=== PATIENT | female | born 1960 | race American Indian/Alaskan Native ===

== ENCOUNTER 2018-03-08 21:22 | Emergency (ER) | payer MEDICARE ==
[2018-03-08 23:32] LABS: BUN/Creatinine Ratio 20; Blood Urea Nitrogen 20 mg/dL (7-17); Calcium 8.9 mg/dL (8.4-10.2); Hemolysis Index 2
--- NOTE | 2018-03-08 23:37 | Cat Scan Report ---
FINAL REPORT PROCEDURE: CT ABDOMEN PELVIS WO CON TECHNIQUE: Computerized axial tomography of the abdomen and pelvis was performed without intravenous contrast. This study is performed without intravascular contrast material and its sensitivity for abdominal and pelvic pathology, including neoplasms, inflammation, abscess, free fluid, thrombosis, arterial dissection and infarction, is reduced compared with a contrast enhanced study. HISTORY: b/l nephrostomy tubes possible leakage COMPARISON: No prior studies are available for comparison. FINDINGS: Visualized lower thorax: No significant abnormality. Liver: Normal size and attenuation. Spleen: Normal size and attenuation. Gallbladder and biliary system: There are gallstones. There is no specific evidence of cholecystitis. There is no biliary ductal dilatation.. Pancreas: Normal. Adrenals: Normal. Kidneys: There are bilateral percutaneous nephrostomy tubes. The right tube appears to be malposition in the midpole renal parenchyma rather than the collecting system. However, there is no hydronephrosis. The left tube is in the left renal pelvis. There are bilateral kidney stones. There is mild left hydronephrosis and hydroureter. GI tract: There is no bowel obstruction. There has been bowel surgery. There is no colitis or enteritis. The appendix is not identified.. Lymph nodes and mesentery: Normal. Vasculature: There is calcified atherosclerosis. There is no aneurysm.. Bladder: There is diffuse thickening of the urinary bladder wall. No discrete mass is seen.. Reproductive organs: There has been hysterectomy.. Peritoneum: There is no ascites, free air, abscess or adenopathy.. Musculoskeletal structures: No significant abnormality. Other: None. IMPRESSION: There are gallstones. There is no specific evidence of cholecystitis. There is no biliary ductal dilatation.. There are bilateral percutaneous nephrostomy tubes. The right tube appears to be malposition in the midpole renal parenchyma rather than the collecting system. However, there is no hydronephrosis. The left tube is in the left renal pelvis. There are bilateral kidney stones. There is mild left hydronephrosis and hydroureter. There is diffuse thickening of the urinary bladder wall. No discrete mass is seen.. There is no bowel obstruction. There has been bowel surgery. There is no colitis or enteritis. The appendix is not identified.. There has been hysterectomy.. There is no ascites, free air, abscess or adenopathy.. .
[2018-03-09 00:21] LABS: Basophils % (Auto) 0.4 % (0.0-1.8); Eosinophils # (Auto) 0.1 K/mm3 (0.0-0.4); Eosinophils % (Auto) 1.2 % (0.0-4.3); Hematocrit 28.6 % (30.3-42.9); Hemoglobin 8.9 gm/dl (10.1-14.3); Lymphocytes # (Auto) 1.1 K/mm3 (1.2-5.4); Lymphocytes % (Auto) 13.6 % (13.4-35.0); Mean Corpuscular HGB Conc 31 % (30-34); Mean Corpuscular Volume 75 fl (79-97); Monocytes # (Auto) 0.7 K/mm3 (0.0-0.8); Monocytes % (Auto) 8.4 % (0.0-7.3); Platelet Count 276 K/mm3 (140-440); Red Cell Distribution Width 18.1 % (13.2-15.2)
[2018-03-09 00:27] LABS: Mean Corpuscular Hemoglobin 24 pg (28-32)
--- NOTE | 2018-03-09 03:35 | Emergency Department Report ---
ED Female HPI - General Chief complaint: Abdominal Pain Stated complaint: NEPHROSTOMY TUBE LEAKING, ABD PAIN Time Seen by Provider: 03/09/18 03:04 Source: patient Mode of arrival: Ambulatory Limitations: No Limitations - History of Present Illness Initial comments: 57 yo female with past medical history of cancer to the cervix, colon, bladder, CABG, bilateral nephrostomy tubes, colon resection and hysterectomy presents to hospital complaining of leaking from her right nephrostomy tube noticed today. Patient complains of feeling feverish at home but no documented fever patient denies nausea, vomiting, diaphoresis. She only urinates once a day. Positive urine output from each nephrostomy tube. - Related Data Allergies Allergy/AdvReac Type Severity Reaction Status Date / Time aminophylline Allergy Itching Verified 03/08/18 22:19 erythromycin base Allergy Itching Verified 03/08/18 22:17 gentamicin Allergy Hives Verified 03/08/18 22:18 Penicillins Allergy Itching Verified 03/08/18 22:17 tramadol Allergy Itching Verified 03/08/18 22:19 ED Review of Systems ROS: Stated complaint: NEPHROSTOMY TUBE LEAKING, ABD PAIN Other details as noted in HPI Comment: All other systems reviewed and negative ED Past Medical Hx - Past Medical History Previous Medical History?: Yes Hx Heart Attack/AMI: Yes (Open heart surgery, Defibrillator) Hx Diabetes: Yes Hx Renal Disease: Yes (Acute Kidney Failure has bilateral nephrostomy tubes) Hx of Cancer: Yes (cervical, colon, bladder) Additional medical history: TURP 2017 Colon resection, Bilateral nephrostomy tubes, Defibrillator - Surgical History Past Surgical History?: Yes Hx Open Heart Surgery: Yes Hx Internal Defibrillator: Yes Additional Surgical History: TURP, Colon Resection, Bilateral Nephrostomy Tubes , Hysterectomy after Cervical cancer 2010 - Social History Smoking Status: Never Smoker Substance Use Type: None ED Physical Exam - General Limitations: No Limitations - Other Other exam information: General: No limitations, patient is alert in no acute distress Head exam: Atraumatic, normocephalic Eyes exam: Normal appearance ENT: Moist mucous membrane, normal oropharynx Neck exam: Normal inspection, full range of motion, no meningismus nontender Respiratory exam: Clear to auscultation bilateral, no wheezes, rales, crackles Cardiovascular: Normal rate and rhythm, normal heart sounds Abdomen: Soft, nondistended, and nontender, with normal bowel sounds, no rebound, or guarding Extremity: Full range of motion normal inspection no deformity Back: Normal Inspection, full range of motion, no tenderness. Bilateral nephrostomy tubes with mild leaking on gauze at the right nephrostomy site. Bilateral output and both nephrostomy bags. Neurologic: Alert, oriented x3, cranial nerves intact, no motor or sensory deficit Psychiatric: normal affect, normal mood Skin: Warm, dry, intact ED Course Vital Signs 03/08/18 03/08/18 03/09/18 21:56 22:33 02:48 Temperature 99.1 F 99.1 F 98.3 F Pulse Rate 81 83 80 Respiratory 16 20 16 Rate Blood Pressure 128/49 128/49 Blood Pressure 112/40 [Left] O2 Sat by Pulse 100 100 99 Oximetry - Consultations Consultation #1: 03/09/18 04:03 case d/w Dr Granger, since no fever here, wbc count normal and right nephrostomy tube is draining, rec outpatient follow up. contact office on Saturday to schedule outpatient follow up and tube exchange. Antibiotics are not recommended since the lack of fever and FVC Here in the ED ED Medical Decision Making - Lab Data Result diagrams: 03/08/18 22:57 03/08/18 22:57 Lab Results 03/08/18 03/08/18 Range/Units 22:57 22:57 WBC 8.3 (4.5-11.0) K/mm3 RBC 3.80 (3.65-5.03) M/mm3 Hgb 8.9 L (10.1-14.3) gm/dl Hct 28.6 L (30.3-42.9) % MCV 75 L (79-97) fl MCH 24 L (28-32) pg MCHC 31 (30-34) % RDW 18.1 H (13.2-15.2) % Plt Count 276 (140-440) K/mm3 Lymph % (Auto) 13.6 (13.4-35.0) % [place] % (Auto) 8.4 H (0.0-7.3) % Eos % (Auto) 1.2 (0.0-4.3) % Baso % (Auto) 0.4 (0.0-1.8) % Lymph # 1.1 L (1.2-5.4) K/mm3 [place] # 0.7 (0.0-0.8) K/mm3 Eos # 0.1 (0.0-0.4) K/mm3 Baso # 0.0 (0.0-0.1) K/mm3 Seg Neutrophils % 76.4 H (40.0-70.0) % Seg Neutrophils # 6.4 (1.8-7.7) K/mm3 Sodium 136 L (137-145) mmol/L Potassium 4.2 (3.6-5.0) mmol/L Chloride 94.2 L (98-107) mmol/L Carbon Dioxide 28 (22-30) mmol/L Anion Gap 18 mmol/L BUN 20 H (7-17) mg/dL Creatinine 1.0 (0.7-1.2) mg/dL Estimated GFR > 60 ml/min BUN/Creatinine Ratio 20 % Glucose 145 H (65-100) mg/dL Calcium 8.9 (8.4-10.2) mg/dL - Radiology Data Radiology results: report reviewed CT ABD PELVIS NON CONTRAST IMPRESSION: There are gallstones. There is no specific evidence of cholecystitis. There is no biliary ductal dilatation.. There are bilateral percutaneous nephrostomy tubes. The right tube appears to be malposition in the midpole renal parenchyma rather than the collecting system. However, there is no hydronephrosis. The left tube is in the left renal pelvis. There are bilateral kidney stones. There is mild left hydronephrosis and hydroureter. There is diffuse thickening of the urinary bladder wall. No discrete mass is seen.. There is no bowel obstruction. There has been bowel surgery. There is no colitis or enteritis. The appendix is not identified.. There has been hysterectomy.. There is no ascites, free air, abscess or adenopathy.. - Medical Decision Making mild leaking and mild displacement of nephrostomy tube on the right. Case discussed with urologist. Patient be encouraged to call the office on Saturday to schedule nephrostomy replacement. No indication for admission or antibiotics at this time (no fever, no wbc elevation, normal renal function) - Differential Diagnosis nephrostomy malfunction, infection Critical Care Time: No Critical care attestation.: If time is entered above; I have spent that time in minutes in the direct care of this critically ill patient, excluding procedure time. ED Disposition Clinical Impression: Nephrostomy tube displaced, Gallstones Disposition: - TO HOME OR SELFCARE Is pt being admited?: No Does the pt Need Aspirin: No Condition: Stable Instructions: Nephrostomy Tube Care (ED) Additional Instructions: Call your urologist on Saturday to schedule outpatient nephrostomy change. Return to Ed if you develop a fever with temperature 100.4, pain, or nephrostomy tube becomes completely dislodged. Referrals: LIZZY CASH MD [Primary Care Provider] - 3-5 Days ALHAJI PAT MD [Staff Physician] - 03/10/18 Time of Disposition: 05:12
[2018-03-09 06:52] VITALS: BP 119/35
== END 2018-03-09 06:45 | disposition home or self-care (01) ==
LOC: ED 21:22
DX: T83.032A Leakage of nephrostomy catheter, initial encounter (principal); E11.9 Type 2 diabetes mellitus without complications; X58.XXXA Exposure to other specified factors, initial encounter; Z90.710 Acquired absence of both cervix and uterus; Z95.1 Presence of aortocoronary bypass graft; Z88.1 Allergy status to other antibiotic agents; Z88.0 Allergy status to penicillin
CPT/HCPCS: 36415; 74176; 80048; 85025

== ENCOUNTER 2018-03-12 08:35 | Day surgery (SDC) | payer MEDICARE ==
[~2018-03-12 08:35] MED LIST: NACL 0.9% 1000 ML 1,000 ML IV SCH; VANCOMYCIN/NS 1 GM/250 ML 1 GM/250 ML BAG IV NR
[2018-03-12 11:03] LABS: Basophils % (Auto) 0.4 % (0.0-1.8); Eosinophils # (Auto) 0.2 K/mm3 (0.0-0.4); Eosinophils % (Auto) 3.2 % (0.0-4.3); Hematocrit 24.5 % (30.3-42.9); Mean Corpuscular HGB Conc 33 % (30-34); Mean Corpuscular Volume 75 fl (79-97); Monocytes # (Auto) 0.4 K/mm3 (0.0-0.8); Monocytes % (Auto) 8.7 % (0.0-7.3); Platelet Count 221 K/mm3 (140-440); Red Blood Count 3.28 M/mm3 (3.65-5.03)
[2018-03-12 11:08] LABS: Mean Corpuscular Hemoglobin 24 pg (28-32)
[2018-03-12 11:12] LABS: Calcium 8.6 mg/dL (8.4-10.2)
--- NOTE | 2018-03-12 13:05 | Short Stay Summary ---
Short Stay Documentation Date of service: 03/12/18 - History Principal diagnosis: bladder cancer H&P: obtained from office - Allergies and Medications Current Medications: Allergies aminophylline Allergy (Verified 03/08/18 22:19) Itching erythromycin base Allergy (Verified 03/08/18 22:17) Itching gentamicin Allergy (Verified 03/08/18 22:18) Hives Penicillins Allergy (Verified 03/08/18 22:17) Itching tramadol Allergy (Verified 03/08/18 22:19) Itching Active Medications Sodium Chloride (Nacl 0.9% 1000 Ml) 1,000 mls @ 42 mls/hr IV DIRECT ARCHANA Vancomycin HCl (Vancomycin/Ns 1 Gm/250 Ml) 1 gm in 250 mls @ 166.667 mls/hr IV PREOP NR; Protocol Stop: 03/12/18 23:01 - Brief post op/procedure progress note Date of procedure: 03/12/18 Pre-op diagnosis: bladder cancer Post-op diagnosis: same Procedure: Bilateral nephrostogram is through indwelling nephrostomy tubes. Anesthesia: local Surgeon: LIZZY INFANTE Estimated blood loss: none Condition: stable - Disposition Condition at discharge: Good Disposition: DC-01 TO HOME OR SELFCARE Short Stay Discharge Plan Activity: advance as tolerated Weight Bearing Status: Weight Bear as Tolerated Diet: regular Wound: keep clean and dry, per your surgeon's advice Follow up with: LIZZY CASH MD [Primary Care Provider] - 7 Days
--- NOTE | 2018-03-12 13:08 | Operative Report ---
Operative Report Operative Report: EXAM: BILATERAL NEPHROSTOGRAMS THROUGH INDWELLING NEPHROSTOMY TUBES CLINICAL INDICATION: PATIENT WITH A HISTORY OF BLADDER CANCER DATE: 03/12/2018 PROCEDURE: Following an explanation of the risks, benefits and alternative written informed consent was obtained. The patient was brought to the angiographic suite and placed in prone position on the examination table. The patient's indwelling nephrostomy tubes were cleaned and contrast injected through both nephrostomy tubes. Left: There is opacification of the renal pelvis which is not significantly distended. There is transit of contrast through the left ureter into the bladder. Fluoroscopic images were obtained to document this. Right: There is passive dictation of the renal pelvis which is minimally distended. There is transit of contrast through the right ureter into the bladder however it is more delayed secondary to the left. Fluoroscopic images were obtained to document this. The patient's bilateral nephrostomy tubes were capped. The patient tolerated the procedure well. There were no immediate post procedure complications. IMPRESSION: 1) Bilateral nephrostograms demonstrating transit of contrast from the renal pelvis to the bladder. There is a slight delay entrance of contrast on the right as compared to the left.
[2018-03-12 13:28] VITALS: BP 121/97
[2018-03-12] MEDS ORDERED: FLUSH HEPARIN IV ONE ×2 (14:04)
== END 2018-03-12 15:25 | disposition home or self-care (01) ==
LOC: CATHLABREC 08:35
PROVIDERS: ATTEND Radiology Diagnostic Radiology
DX: N13.39 Other hydronephrosis (principal); Z85.51 Personal history of malignant neoplasm of bladder; Z88.0 Allergy status to penicillin; Z88.1 Allergy status to other antibiotic agents; Z88.8 Allergy status to other drugs, medicaments and biological substances
CPT/HCPCS: 36415; 74425; 80048; 85025; 96365; J1642; J3370; J7030; Q9967